=== PATIENT | male | born 2000 | race Caucasian/White ===

== ENCOUNTER 2024-03-11 08:17 | Emergency (ER) | payer BC ==
[~2024-03-11] VITALS: Ht 185.4 cm; Wt 81.6 kg
[2024-03-11 08:24] VITALS: BP_SYST 131; PULSE 83; RESP 18; TEMP 98.3; O2SAT 98
== END 2024-03-11 08:58 ==
LOC: SED 08:17
DX: Z02.83 Encounter for blood-alcohol and blood-drug test (principal)